=== PATIENT | female | born 1965 | race Caucasian/White ===

== ENCOUNTER 2024-02-05 10:30 | Outpatient (RCR) | payer OTHER, SELFPAY | END 2024-06-04 23:59 | disposition home or self-care (01) | PROVIDERS: Visit Provider Student in an Organized Health Care Education/Training Program | DX: M25.551 Pain in right hip (principal); Z51.89 Encounter for other specified aftercare | CPT/HCPCS: 97110; 97162 ==

== ENCOUNTER 2024-11-10 08:10 | Outpatient (CLI) | payer OTHER, SELFPAY | END 2024-11-10 08:11 | disposition home or self-care (01) | LOC: INJ CL 08:12 | PROVIDERS: PCP Student in an Organized Health Care Education/Training Program; Visit Provider Family Medicine | DX: M54.16 Radiculopathy, lumbar region (principal); M51.369 Other intervertebral disc degeneration, lumbar region without mention of lumbar back pain or lower extremity pain | CPT/HCPCS: 62323; J0702; Q9966 ==